=== PATIENT | female | born 1995 | race Caucasian/White ===

== ENCOUNTER 2021-11-16 04:10 | Outpatient (CLI) | payer OTHER, SELFPAY ==
[2021-11-16 11:00] LABS: HCG Quant, Pregnancy 258 mIU/mL (1-3)
== END 2021-11-16 04:11 | disposition home or self-care (01) ==
LOC: LBO 04:10
PROVIDERS: Visit Provider Advanced Practice Midwife
DX: N92.6 Irregular menstruation, unspecified (principal); Z32.00 Encounter for pregnancy test, result unknown
CPT/HCPCS: 36415; 86850; 86900; 86901; 84702

== ENCOUNTER 2021-11-24 04:17 | Outpatient (CLI) | payer OTHER, SELFPAY ==
[2021-11-24 13:25] LABS: HCG Quant, Pregnancy 10 mIU/mL (1-3)
== END 2021-11-24 04:18 | disposition home or self-care (01) ==
LOC: LBO 04:17
PROVIDERS: Visit Provider Advanced Practice Midwife
DX: O20.0 Threatened abortion (principal)
CPT/HCPCS: 36415; 84702